=== PATIENT | male | born 1995 | race Caucasian/White ===

== ENCOUNTER 2021-01-30 15:19 | Emergency (ER) | payer OTHER ==
[2021-01-30] MEDS ORDERED: Boostrix 0.5 ML (Tdap) VIAL ONE (15:55)
== END 2021-01-30 17:26 | disposition home or self-care (01) ==
LOC: CSHERS 15:19
DX: S61.512A Laceration without foreign body of left wrist, initial encounter (principal); Z23 Encounter for immunization; W26.0XXA Contact with knife, initial encounter
CPT/HCPCS: 12001; 90471; 90715